=== PATIENT | female | born 1950 | race Caucasian/White ===

== ENCOUNTER 2020-03-08 14:20 | Inpatient (IN) | payer MEDICARE ==
[2020-03-08] MEDS ORDERED: ZYPREXA10 MG PO ×2 (14:30→17:10)
[2020-03-08] MEDS ORDERED: DEPAKENE 2250 MG/5 M PO ×2 (14:31→17:05)
--- NOTE | 2020-03-08 14:45 | NUR ---
PATIENT AGREED TO ALLOW BLOOD DRAW
--- NOTE | 2020-03-08 14:56 | NUR ---
PATIENT REFUSING LAB DRAW, VERY COMBATIVE WHILE GETTING COVID-19 SWAB. CONTACTED [facility] IN [place], OK TO TAKE PATIENT TO [place] WITHOUT LAB WORK AFTER INJECTION OF HALDOL AND ATIVAN.
[2020-03-08 15:01] LABS: BASOPHILS 0.5 % (0-2); EOSINOPHILS 2.3 % (0-7); HEMATOCRIT 38.1 % (36.0-48.0); HEMOGLOBIN 12.1 g/dL (12-16); IMMATURE GRANULOCYTES 0.2 % (0-5); LYMPHOCYTES 40.3 % (15-50); MCH 27.3 pg (26.0-34.0); MCHC 31.8 g/dL (31.0-37.0); MCV 85.8 fL (80.0-100.0); MEAN PLATELET VOLUME 9.7 fL (7.4-10.4); MONOCYTES 9.1 % (2-11); NEUTROPHILS 47.6 % (40-80); PLATELET COUNT 263 10x3/uL (130-400); RBC 4.44 10x6/uL (4.00-5.40); RDW 14.2 % (11.5-14.5); WBC 6.6 10x3/uL (4.8-10.8)
[2020-03-08 15:17] LABS: CALC OSMOLALITY 293 mosm/kg (275-300); CALCIUM 9.6 mg/dL (8.5-10.1); CARBON DIOXIDE 32.5 mmol/L (21.0-32.0); CHLORIDE - SERUM 110 mmol/L (98-107); CREATININE - SERUM 0.6 mg/dL (0.6-1.3); GLUCOSE 120 mg/dL (74-106); POTASSIUM - SERUM 3.8 mmol/L (3.5-5.1); SODIUM 145 mmol/L (136-145); UREA NITROGEN 25 mg/dL (7-18); eGFR NON AFRICAN AMERICAN > 90 mL/min (90-120)
[2020-03-08 15:32] LABS: ALKALINE PHOSPHATASE 96 U/L (30-120); ALT (SGPT) 19 U/L (10-68); BILIRUBIN - TOTAL 0.37 mg/dL (0.2-1.3); PROTEIN - SERUM 7.2 g/dL (6.4-8.2); T4 THYROXINE 7.5 ug/dL (4.7-13.3)
[2020-03-08] MEDS ORDERED: TYLENOL ARTHRI650 MG PO (16:26)
[2020-03-08] MEDS ORDERED: MAALOX ADVANCE355 ML PO (16:27)
[2020-03-08] MEDS ORDERED: ASCORBIC ACID500 MG (16:28)
[2020-03-08] MEDS ORDERED: VITAMIN D1000 UNIT PO (16:34)
[2020-03-08] MEDS ORDERED: HALDOL DECAN50 MG/ML (17:10)
[2020-03-08 17:19] LABS: CHOL - HDL RATIO 3.4 ratio (2.3-4.1); LDL-HDL RATIO 2.2 ratio (1.5-3.5)
[2020-03-08 17:21] LABS: VALPROIC ACID (DEPAKOTE) 2.7 ug/mL (50.0-100.0)
[2020-03-08 17:52] VITALS: BP 115/59; BMI 27.6
--- NOTE | 2020-03-08 18:06 | NUR ---
PT ADMITTED TO [facility] FROM [facility] ED. PT RESIDENT AT [facility] [place]. CARE OF DR. ALCANTARA. ADMITTING DIAGNOSIS: BIPOLAR. PT IS MANIC, ERRATIC BUT REDIRECTABLE. PT WEIGHT AND VITAL SIGNS OBTAINED. VERBAL CONSENT OBTAINED FROM PT FOR TREATMENT. PT IS A FULL CODE. PASS CODE 0777. PT CURRENTLY IN ROOM EATING DINNER. PT IS CALM.
--- NOTE | 2020-03-08 19:23 | NUR ---
PT IS EXITING HER ROOM YELLING AT STAFF MEMBERS. SHE IS AGGRESSIVE AND ANXIOUS. SHE IS THROWING ITEMS OFF THE NURSES STATION. ATTEMPTED TO REDIRECT. ADMINISTERED IM HALDOL 2 MG AND ATIVAN 0.5 MG IM. WILL CONTINUE TO MONITOR.
--- NOTE | 2020-03-08 19:52 | NUR ---
PT IS SITTING IN HER BED. NO SIGNS OF DISTRESS NOTED. WILL CONTINUE TO MONITOR.
[2020-03-08 22:25] VITALS: BP 108/62
--- NOTE | 2020-03-09 05:34 | NUR ---
PT IS YELLING OUT AND UNABLE TO REDIRECT. SHE IS ATTEMPTING TO THROW CHAIRS AT STAFF. ADMINISTERED HALDOL 2 MG AND ATIVAN 0.5MG IM. WILL CONTINUE TO MONITOR.
--- NOTE | 2020-03-09 06:31 | NUR ---
PT IS RESTING CALMLY IN BED. NO DISTRESS NOTED. WILL CONTINUE TO MONITOR.
[2020-03-09 09:22] VITALS: BP 116/57
--- NOTE | 2020-03-09 10:03 | NUR ---
The patient is talking and yelling loudly, she is talking about the devil and then she says "You're the devil." She has altered thoughts, she then cries and says "Help me." She vascilates quickly and she is bizarre in her thoughts and behavior. She is ambulatory, but unsteady. Provided Geodon 20 mg in her left deltoid. Provide prescribed meds. Redirect as needed. The patient is yelling to no one in her presence "Go back to hell, and God damn them to hell." Continue POC.
--- NOTE | 2020-03-09 10:30 | NUR ---
The patient continues to talk to the demons and she yells out.
--- NOTE | 2020-03-09 11:30 | NUR ---
Staff took her to shower, she did not fight staff.
--- NOTE | 2020-03-09 12:30 | NUR ---
The patient is calm and she has fallen asleep in a gerichair.
[2020-03-09 14:39] VITALS: Wt 82.5 kg
--- NOTE | 2020-03-09 18:55 | NUR ---
PT COMBATIVE. UNABLE TO OBTAIN U/A THIS SHIFT. WILL ATTEMPT AT ANOTHER TIME WHEN PT IS NOT COMBATIVE.
[2020-03-09 20:10] VITALS: BP 88/56
[2020-03-09 21:48] LABS: BILIRUBIN NEGATIVE (NEGATIVE); KETONE NEGATIVE (NEGATIVE); NITRITE NEGATIVE (NEGATIVE); UROBILINOGEN NORMAL (NORMAL)
[2020-03-09 21:49] LABS: BACTERIA MODERATE /hpf (NEGATIVE); EPITHELIAL CELLS 0-5 /hpf (0-5); RED CELLS - URINE 0-5 /hpf (0-5); WHITE CELLS - URINE OCC /hpf (NEGATIVE)
--- NOTE | 2020-03-10 00:20 | NUR ---
PT IS RESTING CALMLY IN BED WITH EYES CLOSED. NO DISTRESS NOTED. WILL CONTINUE TO MONITOR.
--- NOTE | 2020-03-10 00:44 | NUR ---
B) Patient is alert and oriented to self, very confused, hyper-religiousity, manic and esclates quickly, I) Administered scheduled medications as ordered, PRN Ativan 2 mg IM and Haldol 5 mg IM given for anxiety at 23:22 R) Mediation compliant, resting quietly in her room now, P) Continue plan of care.
[2020-03-10 08:27] VITALS: BP 118/72
--- NOTE | 2020-03-10 09:52 | NUR ---
The patient is acting bizarre, on one minute she is talking about devils and witches and how she hates medicine and she needs a cigarette and the staff are too lazy to take her to smoke. She is now humming and singing gospel songs. She is having visual and auditory hallucinations as she is talking to them and pointing at them. She ambulates, but alittle unsteady d/t getting a prn last night. Provide prescribed meds. Crushed the patient's medication and put it in her cream filled Syrian. She picked at it and did not eat it. Continue POC.
--- NOTE | 2020-03-10 11:23 | NUR ---
PT AGITATED AND VERBALLY AGRESSIVE. STATING "YALL TRYING TO KILL ME. YALL ARE BASTARDS. THOSE DRUGS ARE GOING TO KILL ME." PT NONCOMPLIANT WITH MEDS AT THIS TIME. PT CONTS TO GET LOUD WHILE TALKING. UNABLE TO REDIRECT BEHAVIOR AT THIS TIME. ATIVAN 2 MG AND HALDOL 5 MG IM ADMINISTERED PER DR. ALCANTARA ORDER. WILL CONT TO MONITOR FOR EFFECTIVENESS. CHAIR ALARM IN PLACE AND ACTIVE.
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
--- NOTE | 2020-03-10 19:06 | PN ---
PATIENT:SHELIA MCNAMARA MEDICAL RECORD: [id number] LOCATION:[facility]112 ADMISSION DATE: 03/08/20 PROGRESS NOTE DATE OF SERVICE: 03/10/2020 SUBJECTIVE: The patient's case was discussed with staff. She has no new complaint. OBJECTIVE: The patient is quite disorganized and agitated. She has very poor insight about her situation. ASSESSMENT: Schizophrenia. PLAN: Current medicines have been reviewed and will be maintained. I am going to start her on a scheduled dose of Ativan for her level of agitation. TRANSINT:[id number] Voice Confirmation ID: [id number] DOCUMENT ID: [id number] INEZ ALCANTARA MD at 1906 CC: [id number] DICTATION DATE: 03/10/20 1237 CEMENTER MACHINE: 03/10/20 1303 ADM IN [facility] [address] [place] [address]
[2020-03-10 20:00] VITALS: BP 91/57
--- NOTE | 2020-03-10 20:47 | NUR ---
B.) PT IS ALERT AND ORIENTED TO SELF. SHE HAS POOR INSIGHT INTO HER SITUATION. SHE IS CALM AND COOPERATIVE AT THIS TIME. SHE IS ABLE TO AMBULE ON HER OWN BUT HER GAIT IS UNSTEADY. I.) PROVIDED PM MEDICATIONS PRESCRIBED. REDIRECT NEEDED. R.) COMPLIANT WITH ALL MEDICATIONS. DIFFICULT TO REDIRECT AT TIMES. P.) WILL CONTINUE TO MONITOR.
--- NOTE | 2020-03-10 23:37 | NUR ---
PT IS YELLING OUT TENRIISM STATEMENTS. SHE IS AGGITATED AND AGGRESSIVE WITH REDIRECTION. ADMINISTERED PRN HALDOL AND ATIVAN IM. WILL CONTINUE TO MONITOR.
[2020-03-11 10:50] VITALS: BP 137/84
--- NOTE | 2020-03-11 12:17 | NUR ---
The patient is awake, she is a little groggy, but she is walking. She continues to speak in a bizarre manner. Repeating herself over and over saying "You're the devil, you're witches, medicine is from the devil." She does not know where she is, try to explain to her that she is in a behavior unit. She says "Oh no not me, I don't have nothing wrong with me." The patient is hallucinating as she is speaking to unseen others and pointing at them and telling them off, she is not able to differentiate between reality vs nonreality. Provide prescribed meds. Staff were able to talk her into taking some of her medications. Primarily the psychiatric meds, see MAR. Continue POC.
--- NOTE | 2020-03-11 20:15 | NUR ---
RECEIVED IN DAYROOM. SITTING IN A CHAIR WITH PEERS AT HER SIDE. CALM AND COOPERATIVE WITH CARE AND ASSESSMENT. NO SIGNS OF AGGRESSION. REDIRECT AND REORIENT NEEDED. CONTINUES TO SIT CALMLY IN DAYROOM. CONTINUE PLAN OF CARE.
[2020-03-11 20:37] VITALS: BP 124/70
[2020-03-12 09:21] VITALS: BP 130/70
--- NOTE | 2020-03-12 10:17 | NUR ---
PT STATED THAT SHE IS FEELING BETTER. NO AGGRESSION NOTED. NO SIGNS OF HALLUCIANTIONS AT THIS TIME. PT IS MED COMPLIANT. POSITIVE REINFORCEMENT GIVEN FOR GOOD BEHAVIOR. WILL CONTINUE TO MONITOR AND CONTINUE WITH PLAN OF CARE.
--- NOTE | 2020-03-12 11:22 | NUR ---
Nutrition Follow-up: Diet: Regular PO intake: ~89% average x last 6 meals Last BM: 03/10/20. WT: 176# (03/11/20); Admit Wt: 171# (03/08/20) Meds reviewed. No new labs. Recommend continue current diet. RD following.
--- NOTE | 2020-03-12 12:27 | PN ---
PATIENT:SHELIA MCNAMARA MEDICAL RECORD: [id number] LOCATION:[facility] [place] ADMISSION DATE: 03/08/20 PROGRESS NOTE DATE OF SERVICE: 03/11/2020 SUBJECTIVE: The patient's case was discussed with staff. She has no new complaint. OBJECTIVE: The patient denies intent to harm herself or others. She is disorganized in her thought processes and clearly delusional. ASSESSMENT: Schizophrenia. PLAN: Current medicines have been reviewed and will be maintained. She is only intermittently compliant. This is problematic from the standpoint of adjusting them. She did require some p.r.n. medication because of agitation. TRANSINT:[id number] Voice Confirmation ID: [id number] DOCUMENT ID: [id number] INEZ ALCANTARA MD at 1227 CC: [id number] DICTATION DATE: 03/11/20 1404 THAW SHED HEATER TENDER: 03/12/20 0148 ADM IN [place] [id number] [place] [id number]
[2020-03-12 20:05] VITALS: BP 112/70
--- NOTE | 2020-03-13 02:35 | NUR ---
B) Patient is alert and oriented to person, calmer this shift, quiet and keeping to herself, I) Adminsited scheduled medications as ordered, monitored or safety R) Mediation compliant, no behaviors noted this shift P) Continue plan of care.
--- NOTE | 2020-03-13 08:21 | PN ---
PATIENT:SHELIA MCNAMARA MEDICAL RECORD: [id number] LOCATION:[facility] [address]112 ADMISSION DATE: 03/08/20 PROGRESS NOTE DATE OF SERVICE: 03/12/2020 SUBJECTIVE: The patient's case was discussed with staff. She has no new complaint. OBJECTIVE: The patient is disorganized and delusional at times. She has not been aggressive today. ASSESSMENT: Schizophrenia. PLAN: I am going to keep the patient on the same medications today. Her long-term prognosis is guarded. I am encouraged by the improvement she has shown so far. TRANSINT:[id number] Voice Confirmation ID: [id number] DOCUMENT ID: [id number] INEZ ALCANTARA MD at 0821 CC: [id number] DICTATION DATE: 03/12/20 1641 GREASER AND OILER: 03/12/20 2333 ADM IN [place] [id number] [place] [address]
[2020-03-13 09:53] VITALS: BP 133/70
--- NOTE | 2020-03-13 09:56 | NUR ---
REC'D PT IN DAYRROM WOTH PEERS. AWAKE AND ALERT TO PERSON ONLY. CALM AND COOPERATIVE WITH ASSESSMENT. PRESCRIBED MEDS PROVIDED ORDERED. PT IS NON MED COMPLIANT. REDIRECT AND REORIENT NEEDED. FALL PRECAUTIONS IN PLACE. WILL CPOC.
[2020-03-13 20:28] VITALS: BP 145/70
--- NOTE | 2020-03-13 22:58 | NUR ---
B) Patient is alert and oriented to person, very paranoid, thinks people are poisoning her, thinks her was poisoned with medications. I) Offered scheduled medications as ordered, monitored for safety R) Refused all medications several times, P) Continue plan of care.
[2020-03-14 09:16] VITALS: BP 125/76
--- NOTE | 2020-03-14 11:11 | NUR ---
PT IS ATTENDING GROUP AT THIS TIME WITH PEERS. ASSESSMENT COMPLETED. PT REFUSES MORNING MEDS X 3. REDIRECT AND REORIENT NEEDED. WILL CPOC.
--- NOTE | 2020-03-14 15:58 | PN ---
PATIENT:SHELIA MCNAMARA MEDICAL RECORD: [id number] LOCATION:[facility] [address]112 ADMISSION DATE: 03/08/20 PROGRESS NOTE DATE OF SERVICE: 03/13/2020 SUBJECTIVE: The patient's case was discussed with staff. She has no new complaint. OBJECTIVE: The patient is delusional, but not aggressive or combative. She is only intermittently compliant with medications. ASSESSMENT: Schizophrenia. PLAN: The long-acting injection that she received is having some effect. I would prefer she be compliant with her scheduled medications, but on the whole she is certainly better. TRANSINT:[id number] Voice Confirmation ID: [id number] DOCUMENT ID: [id number] INEZ ALCANTARA MD at 1558 CC: [id number] DICTATION DATE: 03/13/20 1539 GLAZIER STAINED GLASS: 03/14/20 0011 ADM IN [facility] [address] [place] [id number]
--- NOTE | 2020-03-14 16:20 | NUR ---
Nutrition Follow-up: Diet: Regular PO intake: ~91% average x last 9 meals Last BM: 03/10/20. Wt: 176# (03/11/20); Admit Wt: 171# (03/08/20) Meds reviewed. Labs (03/08/20): Glu 120(H), A1c 6.3(H), Chol 228(H), LDL 150(H) Recommend continue current diet. May need no concentrated sweets. RD following.
[2020-03-14 20:01] VITALS: BP 118/71
--- NOTE | 2020-03-14 23:57 | NUR ---
B) Patient is alert and oriented to self, very paranoid, thinks she is being poisoned by her medications, I) Administered scheduled medications as ordered, redirected as needed, R) Mediation compliant, meds were crushed in choclate pudding, P) Continue plan of care.
[2020-03-15 09:25] VITALS: BP 125/82
--- NOTE | 2020-03-15 10:37 | NUR ---
The patient remains bizarre in behavior and affect, she is attending to voices and then she whispers to the man sitting next to her and tries to converse with him. She ambulates independently. Provide prescribed meds. Offer her meds crushed. She refused by mouth and then she refused to eat breakfast. She is watchful. She has not shown any aggression today. Continue POC.
--- NOTE | 2020-03-15 12:01 | PN ---
PATIENT:SHELIA MCNAMARA MEDICAL RECORD: [id number] LOCATION:[facility] [address]112 ADMISSION DATE: 03/08/20 PROGRESS NOTE DATE OF SERVICE: 03/14/2020 SUBJECTIVE: The patient's case was discussed with staff. She has no new complaint. OBJECTIVE: The patient does speak to me today. She is a little irritated that I want to talk with her, but today she will speak with me. She is not taking medicine and when I asked about that, she becomes angry. She has had a long-acting injection. I will wait a little longer before repeating that. I do have longitudinal information indicating that she has a history of noncompliance. ASSESSMENT: Schizophrenia. PLAN: Current medicines have been reviewed and will be maintained. Supportive and educational interventions were made. TRANSINT:[id number] Voice Confirmation ID: [id number] DOCUMENT ID: [id number] INEZ ALCANTARA MD at 1201 CC: [id number] DICTATION DATE: 03/14/20 1612 BAR HELPER: 03/15/20 0404 [facility] IN [place] [id number] [place] [address]
--- NOTE | 2020-03-15 22:26 | NUR ---
B) Patient is alert and oriented to person, parinoid, guarded, I) Administered scheduled medications crushed, monitored for safety R) medication compliant, resting quietly in bed, praying 'the evil out of the staff' at times, P) Continue plan of care.
--- NOTE | 2020-03-16 08:05 | NUR ---
The patient is in her room and she is yelling out. Went to check on her and she said "I am fine, I'm just praying to God." She is in the hallway now and she is singing praise songs, but she is not loud. She continues to be hyperreligious and she is attending to unseen others. Provide prescribed meds, will try to crush and put them in pudding. The patient is watchful and guarded. She ambulates independently. Continue POC.
[2020-03-16 09:07] VITALS: BP 129/86
--- NOTE | 2020-03-16 13:20 | PN ---
PATIENT:SHELIA MCNAMARA MEDICAL RECORD: [id number] LOCATION:[facility] [address]112 ADMISSION DATE: 03/08/20 PROGRESS NOTE DATE OF SERVICE: 03/15/2020 SUBJECTIVE: The patient's case was discussed with staff. She has no new complaint. OBJECTIVE: The patient is tolerating her medicines well. She has some delusions, but is not overtly aggressive. ASSESSMENT: Schizophrenia. PLAN: Current medicines will be maintained. She is not compliant with her oral medications. I will likely give her another Haldol injection at some point. TRANSINT:[id number] Voice Confirmation ID: [id number] DOCUMENT ID: [id number] INEZ ALCANTARA MD at 1320 CC: [id number] DICTATION DATE: 03/15/20 1618 COMMERCIAL ENERGY RATER: 03/15/20 2338 ADM IN [place] [address] [place] [address]
--- NOTE | 2020-03-16 20:00 | NUR ---
P) PATIENT IS ALERT AND ORIENTED TO PERSON, VERY PARANOID AND GUARDED WITH STAFF. I) ADMINISTERED MEDICATIONS CRUSHED IN PUDDING. REDIRECT AND REORIENT NEEDED. MONITOR FOR SAFETY AND NEEDS. R) NON-COMPLIANT WITH MEDICATIONS. SHE THREW PUDDING IN THE TRASH. P) CONTINUE PLAN OF CARE.
--- NOTE | 2020-03-16 21:22 | NUR ---
PATIENT GIVEN HALDOL/ATIVAN FOR EXTREME AGITATION AND PSYCHOSIS, SCREAMING "DAMN YOU TO HELL, YOU ARE A WITCH"!!!. SHE REFUSED HER HS PO MEDS. WILL MONITOR FOR EFFECTIVENESS
--- NOTE | 2020-03-16 22:31 | NUR ---
PRN WAS EFFECTIVE, PATIENT RESTING QUIETLY, WILL CONTINUE TO MONITOR.
--- NOTE | 2020-03-17 07:43 | NUR ---
HALDOL 5MG AND ATIVAN 2MG IM TO RT.DELTOID GIVEN.NON COMPLIANT,WILL NOT REDIRECT.TOUCHING MALE PATIENT,ARGUMENTIVE.
--- NOTE | 2020-03-17 08:00 | NUR ---
POOR RESPONSE TO HALDOL AND ATIVAN.
--- NOTE | 2020-03-17 09:26 | NUR ---
ISHAAN 20MG IM TO RT DELTOID GIVEN YELLING OUT,FOUL LANGUAGE,COMBATIVE WITH STAFF.WILL NOT REDIRECT.
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
--- NOTE | 2020-03-17 23:28 | NUR ---
RECEIVED PATIENT IN DAYROOM, SITTING TO HERSELF, CRUSHED MEDS AND PUT IN PUDDING, SHE ATE MOST OF IT. SHE REFUSED PM CARE THIS EVENING AND SHE WAS WET. WILL FOLLOW POC
[2020-03-18 08:53] VITALS: BP 137/71
--- NOTE | 2020-03-18 15:53 | NUR ---
PT SITTING IN DAYROOM WITH PEERS. CALM AND COOPERATIVE WITH ASSESSMENT. PRESCRIBED MEDS ORDERED. PT REFUSED MEDS THIS MORNING X3. WILL CPOC.
[2020-03-18 19:36] VITALS: BP 123/66
--- NOTE | 2020-03-18 22:28 | NUR ---
B) Patient is alert and oriented to person, calm and cooperative this shift I) Administered scheduleed medications crushed in her snack of chocolet pudding, R) Medication compliant, P) Continue plan of care.
[2020-03-19 09:08] VITALS: BP 146/78
--- NOTE | 2020-03-19 11:23 | NUR ---
PT CUSSING, YELLING AND ATTEMPTING TO HIT AT STAFF AT THIS TIME. UNABLE TO REDIRECT AT THIS TIME. GEODON 20MG IM GIVEN PER MD ORDER. WILL CPOC.
--- NOTE | 2020-03-19 19:39 | NUR ---
RECEIVED IN DAYROOM. SITTING ON THE SOFA KEEPING TO HERSELF. YELLS OUTY AT TIMES THAT SHE WONT TAKE ANY MEDS. CALM AND COOPERATIVE WITH CARE AND ASSESSMENT. NO SIGNS OF AGGRESSION. REDIRECT AND REORIENT NEEDED. CONTINUES TO SIT CALMLY IN DAYROOM. CONTINUE PLAN OF CARE.
[2020-03-19 20:10] VITALS: BP 130/76
--- NOTE | 2020-03-20 08:22 | PN ---
PATIENT:SHELIA MCNAMARA MEDICAL RECORD: [id number] LOCATION:[facility] [address] ADMISSION DATE: 03/08/20 PROGRESS NOTE DATE OF SERVICE: 03/19/2020 SUBJECTIVE: The patient's case was discussed with staff. She has no new complaint. OBJECTIVE: The patient is in good behavioral control with limited insight about her situation. ASSESSMENT: She is still paranoid and delusional. She did receive another Haldol Decanoate shot over the weekend. PLAN: I am going to maintain her on current medications. TRANSINT:[id number] Voice Confirmation ID: [id number] DOCUMENT ID: [id number] INEZ ALCANTARA MD at 0822 CC: [id number] DICTATION DATE: 03/19/20 173 ATTENDANT HONOR BAR: 03/20/20 0135 ADM IN [facility] [address] [place] [address]
[2020-03-20 10:10] VITALS: BP 156/87
--- NOTE | 2020-03-20 12:45 | NUR ---
PT SITTING IN CHAIR TALKING TO SELF AT THIS TIME. PT IS RESTLESS AND TALKING ABOUT DEMONS AND DRUGS. REDIRECT PT NEEDED. REORIENT AND REDIRECT PT AT THIS TIME. PT IS NONCOMPLIANT WITH MEDS. PT REFUSES TO TAKE MEDICATIONS. STAFF CONTS TO ENCOURAGE PT TO TAKE MEDS. PT STATES WE ARE JUST GIVING HER DRUGS. PT AMBULATES. CAN MAKE NEEDS KNOWN. WILL CONT PLAN OF CARE.
--- NOTE | 2020-03-20 13:34 | NUR ---
PT ARGUING WITH ANOTHER PT. PT WAS SCREAMING AT HER STATING THAT SHE WAS A FAT WITCH AND OTHER PROFANTIES. PT UPSET OTHER PT. PTS AT THIS TIME. PT CONT TO CALL US WITCHES, BITCHES AND OTHER NAMES. GEODON 20 MG IM ADMINISTED PER DR. ALCANTARA ORDER. WILL CONT TO MONITOR.
--- NOTE | 2020-03-20 16:32 | NUR ---
PT SITTING IN CHAIR SPEAKING TO SELF. PT IS CONFUSED AND DISORIENTED. PT IS STILL STATING THE STAFF IS DEMONS AND WE GOING TO HELL. REDIRECT AND REORIENT. STAFF UNABLE TO REDIRECT PTS BEHAVIOR AT TIMES. PT CONTS TO NOT TAKE MEDS. PT IS PARANOID AND CONFUSED. PT CAN MAKE NEEDS KNOWN. AMBULATES. WILL CONT PLAN OF CARE.
[2020-03-20 19:52] VITALS: BP 148/69
--- NOTE | 2020-03-20 19:54 | NUR ---
RECEIVED IN DAYROOM. RESTING QUIETLY IN A CHAIR WITH PEERS AT HER SIDE. CALM AND COOPERATIVE WITH CARE AND ASSESSMENT. NO DELUSIONAL STATEMENTS VOICED AT THIS TIME. REDIRECT AND REORIENT NEEDED. CONTINUES TO SIT CALMLY IN DAYROOM. CONTINUE PLAN OF CARE.
--- NOTE | 2020-03-20 21:15 | NUR ---
DELSUIONAL. AGITATION. UNABLE TO REDIRECT. ONE ON ONE FOR SAFETY.
[2020-03-21 08:36] VITALS: BP 148/78
--- NOTE | 2020-03-21 09:07 | PN ---
PATIENT:SHELIA MCNAMARA MEDICAL RECORD: [id number] LOCATION:[facility] [address] ADMISSION DATE: 03/08/20 PROGRESS NOTE DATE OF SERVICE: 03/20/2020 SUBJECTIVE: The patient's case was discussed with staff. She has no new complaint. OBJECTIVE: The patient is not making any sense. She is rocking back and forth, talking to someone not there and laughing. She is clearly impaired cognitively and delusional. She has had 2 injections of Haldol decanoate. At this point, I am going to give her a scheduled IM injections of Haldol and we will monitor her condition. I think she could be helped with a mood stabilizer, but she will not take oral medications. If I am able to bring her psychotic symptoms under some reasonable level of control, perhaps she would be willing to become compliant with medicines. TRANSINT:[id number] Voice Confirmation ID: [id number] DOCUMENT ID: [id number] INEZ ALCANTARA MD at 0907 CC: [id number] DICTATION DATE: 03/20/20 1629 MANAGER INTERNET RETAILS SALES: 03/21/20 0117 ADM IN [place] [id number] [place] [address]
--- NOTE | 2020-03-21 12:27 | NUR ---
SPOKE WITH FAMILY MEMBER KEVON ABOUT WANTING TO SPEAK WITH PT LATER TODAY AND GOT VISITING HOURS. SHE JUST WANTED TO KNOW HOW SHE WAS DOING AND WHAT THE PLAN WAS. NURSE STATED STAFF WAS STILL MAKING MED ADJUSTMENTS DUE TO NONCOMPLIANCE. SHE ASKED IF SHE WAS MEAN OR ANYTHING? I THOUGHT MAYBE IT WAS HER GETTING DEMENTIA. SHE STATED SHE WOULD COME VISIT SOMETIME.
--- NOTE | 2020-03-21 14:58 | NUR ---
Nutrition Follow-up: Diet: Regular PO intake: ~73% average x last 9 meals Last BM: 03/17/20- per notes. Wt: 171# (03/18/20); Admit Wt: 171# (03/08/20) Meds noted: senokot. No new labs. Recommend continue current diet. RD following.
--- NOTE | 2020-03-21 16:11 | NUR ---
PT SITTING IN DAY ROOM TALKING TO SELF. PT IS CONFUSED AND HAVING HALLUCINATIONS. PT IS NONCOMPIANT WITH MEDS. ENCOURAGE TO TAKE MEDS. PT REFUSES. PT CONTS ON IM HALDOL HS SCHEDULE AND WHEN NEEDED. PT CAN MAKE SOME NEEDS KNOWN. REDIRECT AND REORIENT NEEDED. PT AMBULATES. ALERT TO SELF ONLY. WILL CONT PLAN OF CARE.
[2020-03-21 20:27] VITALS: BP 138/79
--- NOTE | 2020-03-22 01:00 | NUR ---
B) PATIENT IS ORIENTED TO PERSON ONLY AND HAVING HALLUCINATIONS TONIGHT. SHE IS VERY CONFUSED. I) REFUSED HER PO MEDICATIONS. ADMINISTERED IM HALDOL SCHEDULED MED. REDIRECT NEEDED, ASSIT WITH NEEDS. R) NONCOMPLIANT WITH MEDICATIONS, RESTING QUIETLY IN BED. P) CONTINUE PLAN OF CARE.
[2020-03-22 11:19] VITALS: BP 116/80
--- NOTE | 2020-03-22 13:19 | PN ---
PATIENT:SHELIA MCNAMARA MEDICAL RECORD: [id number] LOCATION:[facility] ADMISSION DATE: 03/08/20 PROGRESS NOTE DATE OF SERVICE: 03/21/2020 SUBJECTIVE: The patient's case was discussed with staff. She has no new complaint. OBJECTIVE: The patient is delusional, psychotic and agitated. She is not taking oral medicine. She does tell me she will take a dose of Zyprexa if she can witness it being opened and read the label before it is opened. ASSESSMENT: Schizophrenia. PLAN: The patient is combative, dangerous, and not taking medications. I have ordered a scheduled dose of Haldol injections every night and hopefully her psychotic symptoms can be brought under control to a sufficient degree such that she can be managed with oral medications. TRANSINT:[id number] Voice Confirmation ID: [id number] DOCUMENT ID: [id number] INEZ ALCANTARA MD at 1319 CC: [id number] DICTATION DATE: 03/21/20 1649 SCRUM PROJECT MANAGER: 03/21/20 7327 ADM IN [facility] [address] [place] [address]
--- NOTE | 2020-03-22 16:31 | NUR ---
ORIENTED TO SELF.VERY CONFUSED.OBSERVED TALKING TO UNSEEN PERSON.REFUSED MEDS.VISITS WITH PEERS.WILL CONTINUE WITH CURRENT PLAN OF CARE,MONITOR FOR CHANGES AND SAFETY.
--- NOTE | 2020-03-23 06:57 | NUR ---
PATIENT REFUSED MEDS, SHE SAID THAT THEY ARE GENERIC AND THE MEDS IN [place] ARE BETTER. HALDOL IM GIVEN SCHEDULED. BIZARRE BEHAVIOR NOTED SUCH WAVING HER ARMS IN THE AIR. SHE "CHANTS"
--- NOTE | 2020-03-23 12:57 | PN ---
PATIENT:SHELIA MCNAMARA MEDICAL RECORD: [id number] LOCATION:[facility] ADMISSION DATE: 03/08/20 PROGRESS NOTE DATE OF SERVICE: 03/22/2020 SUBJECTIVE: The patient's case was discussed with staff. She has no new complaint. OBJECTIVE: The patient is still agitated and actively hallucinating. She has not required p.r.n. medication. She has had 2 long-acting injectables and is receiving a scheduled injection of Haldol every night. I think I could treat her more effectively with oral medications if she would be compliant, but at this point, she is not. ASSESSMENT: Schizophrenia. PLAN: Current medicines will be maintained along with current therapies. TRANSINT:[id number] Voice Confirmation ID: [id number] DOCUMENT ID: [id number] INZE ALCANTARA MD at 1257 CC: [id number] DICTATION DATE: 03/22/201710 CARTOGRAPHY SUPERVISOR: 03/23/20 0222 ADM IN [place] [id number] [place] [address]
--- NOTE | 2020-03-23 15:02 | NUR ---
The patient is sitting in the corner of the day room and she is hallucinating, she is talking to unseen others she is telling the devils to leave. Asked her if she was ok and she said "Not really, I'm trying to get these devils to leave me."
[2020-03-23 16:17] VITALS: BP 126/90
[2020-03-23 19:57] VITALS: BP 142/61
--- NOTE | 2020-03-23 21:55 | NUR ---
B.) PT IS ALERT AND ORIENTED TO SELF. SHE HAS POOR INSIGHT INTO HER SITUATION. SHE IS RECEIVED IN THE DAYROOM ASLEEP IN A GERICHAIR. SHE IS CALM AND COOPERATIVE WITH STAFF. I.) PROVIDED PM MEDICATIONS PRESCRIBED. REDIRECT OFTEN. R.) NON COMPLIANT WITH ALL MEDICATIONS. DIFFICULT TO REDIRECT. P.) WILL CONTINUE TO MONITOR.
[2020-03-24 10:10] VITALS: BP 141/71
--- NOTE | 2020-03-24 13:52 | NUR ---
The patient is awake and alert, she refused her am meds. She is pleasant and calm, she is hyperverbal and she doesn't stop. She has something to say about every subject. She mostly talks about the Bible, or [place] trying to take over the [employer]. She has not shown any aggression today. She ambulates independently. She has poor insight into her situation. Continue POC.
[2020-03-24 20:00] VITALS: BP 130/80
--- NOTE | 2020-03-24 22:25 | NUR ---
B.) PT IS ALERT AND ORIENTED TO SELF AND SITUATION. SHE IS RECEIVED IN THE DAYROOM SOCIALIZING WITH PEERS. SHE IS ABLE TO AMBULATE ON HER OWN WITHOUT ASSIST. I.) PROVIDED PM MEDICATIONS PRESCRIBED. REDIRECT OFTEN. R.) NON COMPLIANT WITH PO MEDICATIONS. ADMINISITERED SCHEDULED 10 MG HALDOL IM. PT IS AGGITATED AND AGGRESSIVE AFTER INJECTION. SHE RELATES THAT WE ARE ALL STUPID AND TRYING TO KILL HER. P.) WILL CONTINUE TO MONITOR.
[2020-03-25 09:09] VITALS: BP 127/74
--- NOTE | 2020-03-25 12:33 | NUR ---
RECEIVED IN HALLWAY OUTSIDE OF NURSES STATION. CALM AND COOPERATIVE WITH CARE AND ASSESSMENT. REFUSED MORNING MEDICATIONS. NO COMBATIVE BEHAVIOR BUT EASILY BECOMES AGITATED. REDIRECT AND REORIENT NEEDED. EATING AT THIS TIME. CONTINUE PLAN OF CARE.
[2020-03-25 20:00] VITALS: BP 109/63
[2020-03-26 09:00] VITALS: BP 140/87
--- NOTE | 2020-03-26 09:17 | NUR ---
SW SPOKE TO PT'S SISTER AND GUARDIAN ABOUT HER REQUEST TO RETURN PT TO [facility] PT'S SISTER GAVE VERBAL CONSENT TO RETURN HER TO [facility] AND DECLINED PT CHOICE FORM.
--- NOTE | 2020-03-26 12:00 | NUR ---
RECEIVED IN HALLWAY OUTSIDE OF NURSES STATION. CALM AND COOPERATIVE WITH CARE AND ASSESSMENT. NO AGGRESSIVE BEHAVIOR. CONTINUES TO REFUSE TO TAKE MEDICATIONS. DELUSIONAL. REDIRECT AND REORIENT NEEDED. EATING AT THIS TIME. CONTINUE PLAN OF CARE.
[2020-03-26 20:12] VITALS: BP 142/89
--- NOTE | 2020-03-27 09:50 | PN ---
PATIENT:SHELIA MCNAMARA MEDICAL RECORD: [id number] LOCATION:[facility] ADMISSION DATE: 03/08/20 PROGRESS NOTE DATE OF SERVICE: 03/26/2020 SUBJECTIVE: The patient's case was discussed with staff. She has no new complaint. OBJECTIVE: The patient denies that she would seek to harm herself or others. She does make delusional statements and she is still refusing to take medications. Her sister says that this is a longstanding problem and that she has never taken medicines consistently. ASSESSMENT: Schizophrenia. PLAN: Clearly, I am going to have to manage this patient on long-acting injections, which I will do. She is going to receive another injection of Haldol decanoate today. This is not the ideal pharmacology, but it is the best that can be done under the circumstances. TRANSINT:[id number] Voice Confirmation ID: [id number] DOCUMENT ID: [id number] INEZ ALCANTARA MD at 0950 CC: [id number] DICTATION DATE: 03/26/20 1540 AUTOMATIC LEHR OPERATOR: 03/26/20 2330 ADM IN [facility] [address] [place] [address]
--- NOTE | 2020-03-27 12:16 | NUR ---
PT SITTING AT DINING TABLE WITH PEERS EATING LUNCH. ASSESSMENT COMPLETED. PT REFUSING PO MEDS X 3. PRESCRIBED IM MEDS PROVIDED ORDERED. PT MOOD IS PLEASANT AT THIS TIME. REDIRECT AND REORIENT NEEDED. FALL PRECAUTIONS IN PLACE. WILL CPOC.
[2020-03-27 20:43] VITALS: BP 162/85
--- NOTE | 2020-03-27 21:17 | NUR ---
RECEIVED IN DAYROOM. SITTING IN A CHAIR WITH PEERS AT HER SIDE. CALM AND COOPERATIVE WITH CARE AND ASSESSMENT. NO SIOGNS OF AGGRESSION. REDIRECT AND REORIENT NEEDED. WALKING TO BEDROOM AREA AT THIS TIME. CONTINUE PLAN OF CARE.
--- NOTE | 2020-03-28 12:00 | NUR ---
RECEIVED IN HALLWAY OUTSIDE OF NURSES STATION. CALM AND COOOPERATIVE WITH CARE AND ASSESSMENT. NO AGGRESSIVE BEHAVIORS. REDIRECT AND REORIENT NEEDED. EATING AT THIS TIME. CONTINUE PLAN OF CARE.
--- NOTE | 2020-03-28 14:11 | NUR ---
NUTRITION FOLLOW UP: COMMENTS: Patient has been experiencing a good appetite and enjoys the food here per MD note. Patient's last BM on 03/25 per MD note. Patient has been experiencing a good po intake for the last 9 meals. Patient has experinced a 3 lb weight gain within the past 2 weeks. DIET: Regluar Diet PO INTAKE: 65% avg for last 9 meals WEIGHT: 03/18- 171 lbs; 03/25- 174 lbs BM: x 1 on 03/25 SIG LABS: No new labs since 03/08 SIG MEDS: Zinc Stearate RECOMMENDATIONS: -Continue current diet as tolerated -Offer nutritional supplements if po intake becomes < 50% avg for meals -Recommend obtaining new bloods labs RD to continue to follow and monitor patient DHS
--- NOTE | 2020-03-28 14:35 | PN ---
PATIENT:SHELIA MCNAMARA MEDICAL RECORD: [id number] LOCATION:[facility] ADMISSION DATE: 03/08/20 PROGRESS NOTE DATE OF SERVICE: 03/27/2020 SUBJECTIVE: The patient's case was discussed with staff. She has no new complaint. OBJECTIVE: The patient is delusional and bizarre, making some sort of strange hand motions and speaking to someone not present. She does not show any evidence of dangerousness and has not been aggressive, but she certainly psychotic. ASSESSMENT: Schizophrenia. PLAN: The patient still will not take oral medicine. She did receive another Haldol Decanoate injection yesterday. TRANSINT:[id number] Voice Confirmation ID: [id number] DOCUMENT ID: [id number] INEZ ALCANTARA MD at 1435 CC: [id number] DICTATION DATE: 03/27/20 1531 STRATEGIC SOLUTIONS CONSULTANT: 03/27/20 2347 ADM IN [id number] [place] [address]
[2020-03-28 20:37] VITALS: BP 129/63
--- NOTE | 2020-03-29 00:28 | NUR ---
B) Patient is alert and oriented to person, pleasnat and friendly toward staff, bizzaar behavior at times, I) Administered scheduled medications as ordered, monitored for safety R) Medication compliant, yelling out briefly after getting her shot, P) Continue plan of care.
--- NOTE | 2020-03-29 09:09 | NUR ---
The patient is awake, she ambulates independently. She has not shown any aggression today and she is less talkative. She has delusional thoughts, but she is not loud and she has not shown any signs of hallucinations at this time. Provide prescribed meds. The patient is compliant with meds. She is speaking with staff and other patients. Continue POC.
[2020-03-29 09:22] VITALS: BP 125/82
--- NOTE | 2020-03-29 12:16 | PN ---
PATIENT:SHELIA MCNAMARA MEDICAL RECORD: [id number] LOCATION:[facility] ADMISSION DATE: 03/08/20 PROGRESS NOTE DATE OF SERVICE: 03/28/2020 SUBJECTIVE: The patient's case was discussed with staff. She has no new complaint. OBJECTIVE: The patient is delusional, but not disruptive. ASSESSMENT: Schizophrenia. PLAN: If this level of improvement continues, I am going to discharge the patient soon. Noncompliance of medication is a longstanding problem. I do not think it is going to change. Managing her with a long-acting injectable is the most likely option that will give her some measure of improvement. In anticipation of implementing this plan, I am going to reduce her IM injection of Haldol that she receives every night and will stop it in 1-2 day days altogether. TRANSINT:[id number] Voice Confirmation ID: [id number] DOCUMENT ID: [id number] INEZ ALCANTARA MD at 1216 CC: [id number] DICTATION DATE: 03/28/20 1506 PROOF COINS INSPECTOR: 03/29/20 0018 ADM IN [facility] [address] [place] [address]
--- NOTE | 2020-03-29 17:05 | PN ---
PATIENT:SHELIA MCNAMARA MEDICAL RECORD: [id number] LOCATION:[facility] ADMISSION DATE: 03/08/20 PROGRESS NOTE DATE OF SERVICE: 03/29/2020 SUBJECTIVE: The patient's case was discussed with staff. She has no new complaint. OBJECTIVE: The patient is paranoid and delusional, but not disruptive. ASSESSMENT: Schizophrenia. PLAN: I reduced the scheduled injections of Haldol last night. I am going to discontinue that in 1 or 2 days and we will monitor her for 1 or 2 days after that before discharging her. TRANSINT:[id number] Voice Confirmation ID: [id number] DOCUMENT ID: [id number] INEZ ALCANTARA MD at 1705 CC: [id number] DICTATION DATE: 03/29/20 1239 ELECTRIC REPAIR SUPERVISOR: 03/29/20 1617 ADM IN [id number] [place] [address]
[2020-03-29 20:32] VITALS: BP 135/77
--- NOTE | 2020-03-29 22:31 | NUR ---
RECEIVED PATIENT IN DAYROOM, SHE IS CONFUSED, VERY FLAT AFFECT, ACCEPTED HER HALDOL SHOT WITH ANY DIFFICULTY HOWEVER SHE DID SAY THAT "GOD DID NOT TELL YOU TO GIVE ME THAT SHOT" HOWEVER SHE TOOK IT. NO ADVERSE REACTION NOTED.
[2020-03-30 08:52] VITALS: BP 125/85
--- NOTE | 2020-03-30 10:46 | NUR ---
The patient is bizarre in affect she talks and talks, she is sitting by a male patient and she follows him. She has delusions and has her beliefs, she is walking around praying at this time for the evil spirits to leave. She is not yelling or cursing or threatening to harm staff. She ambulates, toilets, and feeds herself. Provide prescribed meds. The patient is compliant with meds. Continue POC.
[2020-03-30 20:00] VITALS: BP 112/63
--- NOTE | 2020-03-30 20:12 | NUR ---
RECEIVED PATIENT IN DAYROOM, SHE IS TALKING WITH TWO OTHER RESIDENTS, SHE IS BIZARRE, DISHEVELED, HOWEVER BETTER THAN SHE WAS UPON ADMISSION, SHE IS COMPLIANT WITH HER HALDOL IM MED. NO ADVERSE REACTION NOTED TO MEDS. WILL FOLLOW POC
[2020-03-31 09:12] VITALS: BP 137/78
--- NOTE | 2020-03-31 13:35 | NUR ---
RECEIVED SITTING UP IN CHAIR AT NURSES STATION.HAS FORMED A FRIENDSHIP WITH MALE PATIENT,THEY SIT OR STAND AND TALK TO EACH OTHER .IS COMPLIANT WITH MEDS TODAY.NO HALLUCINATIONS OBSERVED TODAY.WILL CONTINUE WITH CURRENT PLAN OF CARE,MONITOR FOR CHANGES AND SAFETY.
[2020-03-31 19:33] VITALS: BP 124/76
--- NOTE | 2020-03-31 19:49 | NUR ---
RECEIVED PATIENT IN DAYROOM, CALMLY, RECEIVED IN REPORT THAT SHE TOOK HER PO MEDS TODAY, SHE IS COOPERATIVE, CAN MAKE ALL OF HER NEEDS KNOWN. WILL FOLLOW POC
[2020-04-01 09:28] VITALS: BP 169/86
--- NOTE | 2020-04-01 12:00 | NUR ---
RECEIVED IN HALLWAY OUTSIDE OF NURSES STATION. CALM AND COOPERATIVE WITH CARE AND ASSESSMENT. NO COMBATIVE BEHAVIOR. MEDICATION COMPLIANT. REDIRECT AND REORIENT NEEDED. EATING AT THIS TIME. CONTINUE PLAN OF CARE.
[2020-04-01 18:55] VITALS: BP 122/90
--- NOTE | 2020-04-01 19:33 | NUR ---
RECEIVED IN HALLWAY OUTSIDE OF NURSES STAION. WALKING ABOUT TALKING. CALM AND COOPERATIVE WITH CARE AND ASSESSMENT. NO SIGNS OF AGGRESSION. REDIRECT AND REORIENT NEEDED. RESTING IN BED WITH EYES CLOSED AT THIS TIME. CONTINUE PLAN OF CARE.
[2020-04-02 08:34] VITALS: BP 125/80
--- NOTE | 2020-04-02 15:15 | NUR ---
RECEIVED IN HALLWAY OUTSIDE OF NURSES STATION. CALM AND COOPERATIVE WITH CARE AND ASSESSMENT. NO AGGRESSIVE BEHAVIOR. REDIRECT AND REORIENT NEEDED. PARTICIPATING IN GROUP AT THIS TIME. CONTINUE PLAN OF CARE.
[2020-04-02 19:39] VITALS: BP 101/52
--- NOTE | 2020-04-02 19:41 | NUR ---
RECEIVED IN DAYROOM. SITTING IN A CHAIR WITH PEERS AT HIS SIDE. CALM AND COOPERATIVE WITH CARE AND ASSESSMENT. NO SIGNS OF AGGRESSION. REDIRECT AND REORIENT NEEDED. CONTINUES TO SIT CALMLY IN DAYROOM. CONTINUE PLAN OF CARE.
--- NOTE | 2020-04-03 00:15 | NUR ---
YELLING OUT FROM BEDROOM.
[2020-04-03 09:30] VITALS: BP 125/75
--- NOTE | 2020-04-03 09:56 | PN ---
PATIENT:SHELIA MCNAMARA MEDICAL RECORD: [id number] LOCATION:[facility] ADMISSION DATE: 03/08/20 PROGRESS NOTE DATE OF SERVICE: 04/02/2020 SUBJECTIVE: The patient's case was discussed with staff. She has no new complaint. OBJECTIVE: The patient denies that she would seek to harm herself or others. She tolerates her medicines well. ASSESSMENT: Schizophrenia. PLAN: The patient will be transitioned out of the hospital tomorrow. Her long-term prognosis is guarded and will be largely contingent upon medication compliance. TRANSINT:[id number] Voice Confirmation ID: [id number] DOCUMENT ID: [id number] INEZ ALCANTARA MD at 0956 CC: [id number] DICTATION DATE: 04/02/20 1454 REGISTRATION CLERK: 04/03/20 0037 ADM IN [facility] [address] [id number]
--- NOTE | 2020-04-03 12:00 | NUR ---
RECEIVED IN HALLWAY OUTSIDE OF NURSES STATION. CALM AND COOPERATIVE IWTH CARE AND ASSESSMENT. PLEASANT. SOCIALABLE WITH STAFF AND PEERS. NO AGGRESSIVE BEHAVIORS. REDIRECT AND REORIENT NEEDED. EATING AT THIS TIME. CONTINUE PLAN OF CARE.
[2020-04-03] MEDS ORDERED: LISINOPRIL5 MG PO (15:17)
[2020-04-03] MEDS ORDERED: BENZTROPINE MESY1 MG PO (15:18)
[2020-04-03] MEDS ORDERED: HALDOL DECAN50 MG/ML IM (15:18)
[2020-04-03 21:55] VITALS: BP 101/62
--- NOTE | 2020-04-04 08:33 | PN ---
PATIENT:SHELIA MCNAMARA MEDICAL RECORD: [id number] LOCATION:[facility] ADMISSION DATE: 03/08/20 PROGRESS NOTE DATE OF SERVICE: 04/03/2020 SUBJECTIVE: The patient's case was discussed with staff. She has no new complaint. OBJECTIVE: The patient is in good behavioral control with poor insight about her situation. She is tolerating her medicines well. ASSESSMENT: Schizophrenia. PLAN: The patient will be transitioned out of the hospital and back to the intermediate tomorrow. Followup will be with the local mental health center. She will receive monthly injections of Haldol. TRANSINT:[id number] Voice Confirmation ID: [id number] DOCUMENT ID: [id number] INEZ ALCANTARA MD at 0833 CC: [id number] DICTATION DATE: 04/03/20 1516 LOOKBACK COORDINATOR: 04/04/20 0147 ADM IN [facility] [address] [place] [address]
[2020-04-04 10:24] VITALS: BP 162/78
--- NOTE | 2020-04-04 11:30 | NUR ---
PT SITTING AND TALKING WITH PEERS AT THIS TIME. PT IS CALM AND COOPERATIVE. PT IS FRIENDLY WITH STAFF AND PEERS. COMPLIANT WITH MEDS, VITALS AND ASSESSMENTS. NO BEHAVIORS NOTED AT THIS TIME. PT CAN MAKE NEEDS KNOWN. PT IS D/C TO [facility] THIS SHIFT. WILL CONT PLAN OF CARE.
--- NOTE | 2020-04-04 12:49 | NUR ---
PT DISCHARGING TO [facility] WITH 2 PEOPLE FROM FACILITY. PT WAS CALM AND COOPERATIVE. PT BELONGINGS SENT WITH PT AND PT REVIEWED BELONGINGS SHEET. MEDS AND BELONGINGS SENT WITH PT AT THIS TIME. PT AMBULATED TO FACILITY [facility]. PT IN A GOOD MOOD WHEN DISCHARGING. DISCHARGE WEIGHT: 181.8. REPORT CALLED. PAPERWORK FAXED AND PAPER COPY SENT WITH PT.
--- NOTE | 2020-04-04 14:42 | NUR ---
REPORT CALLED TO ERI HAMMER ,RECEIVING NURSE AT [facility] [place].[phone].ALL QUESTIONS ANSWERED.
== END 2020-04-04 12:56 | DRG 885 ==
LOC: D.ER 14:20 → EDBD 14:20 → D.PSYCH 15:29
PROVIDERS: Family Medicine; ADMIT Psychiatry & Neurology Psychiatry; ATTEND Psychiatry & Neurology Psychiatry
DX: F20.9 Schizophrenia, unspecified (principal); F03.91 Unspecified dementia, unspecified severity, with behavioral disturbance; E55.9 Vitamin D deficiency, unspecified; K59.00 Constipation, unspecified; F17.200 Nicotine dependence, unspecified, uncomplicated; I10 Essential (primary) hypertension